=== PATIENT | female | born 1960 | race Caucasian/White ===

== ENCOUNTER 2016-12-11 13:23 | Emergency (ER) | payer OTHER ==
[~2016-12-11] VITALS: Ht 162.6 cm; Wt 115.7 kg
[2016-12-11] MEDS ORDERED: PREG100C PO (13:42)
[2016-12-11] MEDS ORDERED: BUPR300T43 PO (13:42)
[2016-12-11] MEDS ORDERED: ASPI-999 PO (13:42)
[2016-12-11 14:12] LABS: BASOPHILS % (AUTO) 0 % (0-10); EOSINOPHILS # (AUTO) 0.1 10^3/uL (0.0-0.3); EOSINOPHILS % (AUTO) 1 % (0-10); LYMPHOCYTES # (AUTO) 1.7 X 10^3 (1.0-4.0); LYMPHOCYTES % (AUTO) 17 % (12-44); MEAN CORPUSCULAR HEMOGLOBIN 29 PG (25-34); MEAN CORPUSCULAR HGB CONC 33 G/DL (32-36); MEAN CORPUSCULAR VOLUME 89 FL (80-99); MEAN PLATELET VOLUME 11.5 FL (7.4-10.4); MONOCYTES # (AUTO) 0.8 X 10^3 (0.0-1.0); MONOCYTES % (AUTO) 8 % (0-12); NEUTROPHILS # (AUTO) 7.4 X 10^3 (1.8-7.8); NEUTROPHILS % (AUTO) 73 % (42-75); PLATELET COUNT 261 10^3/uL (130-400); RED BLOOD COUNT 4.87 10^6/uL (4.35-5.85); RED CELL DISTRIBUTION WIDTH 14.1 % (10.0-14.5)
[2016-12-11 14:16] LABS: INR 0.9 (0.8-1.4); PROTHROMBIN TIME PATIENT 12.2 SEC (12.2-14.7)
[2016-12-11 14:24] LABS: ALANINE AMINOTRANSFERASE 29 U/L (0-55); ALBUMIN 4.1 GM/DL (3.2-4.5); ANION GAP 10 MMOL/L (5-14); ASPARTATE AMINO TRANSFERASE 23 U/L (5-34); BILIRUBIN,TOTAL 0.4 MG/DL (0.1-1.0); BLOOD UREA NITROGEN 12 MG/DL (7-18); BUN/CREATININE RATIO 10; CALCIUM 9.8 MG/DL (8.5-10.1); CARBON DIOXIDE 28 MMOL/L (21-32); CHLORIDE 103 MMOL/L (98-107); CREATININE SERUM 1.15 MG/DL (0.60-1.30); GFR ESTIMATED 49; GLUCOSE 91 MG/DL (70-105); MAGNESIUM 2.2 MG/DL (1.8-2.4); POTASSIUM 3.8 MMOL/L (3.6-5.0); SODIUM 141 MMOL/L (135-145); TOTAL PROTEIN 7.5 GM/DL (6.4-8.2)
[2016-12-11 14:30] LABS: MYOGLOBIN SERUM 50.9 NG/ML (10.0-92.0)
[2016-12-11] MEDS ORDERED: NS 100 ML (IVPB) BAG IV ONE (14:30)
[2016-12-11] MEDS ORDERED: IOHEXOL 350 MG/ML 150 ML (OMNIPAQUE 350) VIAL IV ONE (14:30)
--- NOTE | 2016-12-11 15:10 | Diagnostic Imaging Report ---
PROCEDURE: CT angiography of the chest with contrast. TECHNIQUE: Multiple contiguous axial images were obtained through the chest after uneventful bolus administration of intravenous contrast. Reconstructed CTA MIP acquisitions were also performed. INDICATION: Upper left chest pain x1 day. Fullness in the lower esophagus when swallowing. History of previous left subclavian blood clot. CORRELATION STUDY: None FINDINGS: Pulmonary arteries unremarkable. The heart size upper limits of normal. Thoracic aorta normal in contour without intraluminal filling defect. Take off of the major branches of the aortic arch demonstrates a common origin of the brachycephalic trunk and left common carotid artery, normal variation. Azygos vein is noted to be somewhat distended. The left subclavian vein does appear to be slightly effaced by the of ribs and clavicle. At this area, there is slight asymmetry at the density within the vessel. This may simply represent mixing of the contrast with the blood. Given history, thrombus would be difficult to exclude. No pathologically enlarged mediastinal and/or hilar lymph nodes. The EG junction does demonstrate suggestion of slight wall thickening. No abnormal distention of the esophagus. The lung farrar overall are generally clear. Minimal atelectasis is suggested about the lung bases. No significant pleural effusion. There is a small fat containing left posterior medial Bochdalek diaphragmatic hernia and a small amount of herniated fat. Visualized portion of the upper abdomen likely demonstrates hepatic steatosis. Osseous structures demonstrate cervical spinal fusion, otherwise unremarkable apart from degenerative changes of the thoracic spine. No findings to suggest superior rib resection for thoracic outlet symptoms. IMPRESSION: 1. No CT evidence for pulmonary embolism or acute findings of the thoracic aorta. 2. There is noted distention of the azygos vein of unknown etiology or significance. 3. Slight asymmetric compression about the left subclavian vessels. In this location, there is asymmetry within the venous contents. This may very well reflect mixing of contrast with blood. However, given history, thrombus would be difficult to exclude. 4. Questionable wall thickening of the low esophagus. In correlation with symptoms, consideration might be given to a non-emergent followup upper gastrointestinal imaging. Dictated by: Dictated on workstation # [id number]
--- NOTE | 2016-12-11 15:11 | Diagnostic Imaging Report ---
INDICATION: Left upper chest pain for one day. FINDINGS: A single view of the chest shows normal heart size and vascularity. The lungs are clear. There is no effusion or pneumothorax. There is no acute bony abnormality. IMPRESSION: Normal chest. Dictated by: Dictated on workstation # [id number]
--- NOTE | 2016-12-11 15:49 | ED Chest Pain ---
General Chief Complaint: Chest Pain Stated Complaint: CHEST PAIN,DIFFULTY SWALLOWING Nursing Triage Note: PT STATES LT UPPER CHEST PAIN AND PRESSURE, HARD TO SWALLOW THAT STARTED YESTERDAY WORSE TODAY, HX OF JUGULAR SUBCLAVIAN AXIAL CLOT IN 2000. "FEELS LIKE THERE'S SOMETHING THERE." Nursing Sepsis Screen: No Definite Risk Source: patient Exam Limitations: no limitations History of Present Illness Time seen by provider: 13:44 Initial Comments This 56 from woman presents to the emergency room with complaints of pressure sensation in the chest, particularly with swallowing. Swallowing is not difficult and she believes food and fluids are passing through to the stomach, but swallowing is very uncomfortable. She has the sensation of a "ball" causing pressure in the chest with swallowing. Patient denies any suspicion of food bolus or foreign body obstruction. She also has a history of thoracic outlet syndrome and has swelling in the left supraclavicular region. This is chronic and exacerbated. Symptoms with swallowing and pressure in the chest have been present since yesterday. Her primary care provider is Kirk Ulrich in [place]. She has not seen a cardiothoracic surgeon for her thoracic outlet syndrome. She does have a history of jugular, subclavian, and axillary thrombosis for which she was temporarily treated with anticoagulants. She reports having symptoms of GERD a couple months ago that consisted of pressure in the chest with lying flat. Allergies and Home Medications Allergies Coded Allergies: No Known Drug Allergies (Unverified , 12/11/16) Home Medications Aspirin 81 Mg Tab.chew, 81 MG PO DAILY, (Reported) Bupropion HCl 300 Mg Tab.er.24h, 300 MG PO DAILY, (Reported) Omeprazole 20 Mg Tablet.dr, 20 MG PO BID, #30 Prescribed by: SUZAN COBB on 12/11/161823 Pregabalin 100 Mg Capsule, 100 MG PO TID, (Reported) Sucralfate 1 Gm/10 Ml Oral.susp, 1 GM PO QID, #1200 Prescribed by: SUZAN COBB on 12/11/161823 Review of Systems Constitutional: no symptoms reported EENTM: No Symptoms Reported Respiratory: No Symptoms Reported Cardiovascular: See HPI Gastrointestinal: See HPI Genitourinary: No Symptoms Reported Musculoskeletal: no symptoms reported Skin: no symptoms reported Psychiatric/Neurological: No Symptoms Reported Endocrine: No Symptoms Reported Past Fhhvabw-Dbklio-Ephbif Hx Patient Social History Alcohol Use: Denies Use Recreational Drug Use: No Smoking Status: Former Smoker Type Used: Cigarettes Recent Foreign Travel: No Contact w/Someone Who Travel: No Recent Infectious Disease Expo: No Recent Hopitalizations: No Immunizations Up To Date Date of Influenza Vaccine: Mar 14, 2016 Seasonal Allergies Seasonal Allergies: Yes Surgeries HX Surgeries: Yes (cyst removed from sacrum) Surgeries: Abdominal (cystocele and rectocele), Hysterectomy Respiratory Hx Respiratory Disorders: No Cardiovascular Hx Cardiac Disorders: Yes (thoracic outlet syndrome, lymphedema) Cardiac Disorders: Deep Vein Thrombosis (left subclavian and jugular DVT) Neurological Hx Neurological Disorders: Yes (chronic left extremity weakness and pain) Reproductive System : No Genitourinary Hx Genitourinary Disorders: No Gastrointestinal Hx Gastrointestinal Disorders: Yes Musculoskeletal Hx Musculoskeletal Disorders: Yes Musculoskeletal Disorders: Degenerate Disk Disease Endocrine Hx Endocrine Disorders: No HEENT HX ENT Disorders: No Cancer Hx Cancer: No Psychosocial Hx Psychiatric Problems: No Integumentary HX Skin/Integumentary Disorder: No Physical Exam Vital Signs Vital Sign - Last 12Hours 12/11/16 13:32 Temp 99.2 Pulse 82 Resp 20 B/P (MAP) 147/82 Pulse Ox 98 O2 Delivery Room Air Capillary Refill : Less Than 3 Seconds General Appearance: WD/WN, Mild Distress (appears uncomfortable) HEENT: PERRL/EOMI, Normal ENT Inspection Neck: Supple, Other (fullness of the left neck and supraclavicular region) Respiratory: Lungs Clear, Normal Breath Sounds, No Accessory Muscle Use, No Respiratory Distress Cardiovascular: Regular Rate, Rhythm, No Edema, No Murmur Gastrointestinal: Normal Bowel Sounds, No Organomegaly, Non Tender, Soft, No Distended Extremity: Pedal Edema, Swelling, Other (chronic pitting lower extremity edema equal bilaterally with mild tenderness) Neurologic/Psychiatric: Alert, Oriented x3, No Motor/Sensory Deficits, Normal Mood/Affect, programmer II-XII Norm as Tested Skin: Normal Color, Warm/Dry Progress/Results/Core Measures Results/Orders Lab Results Laboratory Tests Test 12/11/16 13:45 Range/Units White Blood Count 10.0 4.3-11.0 10^3/uL Red Blood Count 4.87 4.35-5.85 10^6/uL Hemoglobin 14.1 11.5-16.0 G/DL Hematocrit 43 35-52 % Mean Corpuscular Volume 89 80-99 FL Mean Corpuscular Hemoglobin 29 25-34 PG Mean Corpuscular Hemoglobin Concent 33 32-36 G/DL Red Cell Distribution Width 14.1 10.0-14.5 % Platelet Count 261 130-400 10^3/uL Mean Platelet Volume 11.5 H 7.4-10.4 FL Neutrophils (%) (Auto) 73 42-75 % Lymphocytes (%) (Auto) 17 12-44 % Monocytes (%) (Auto) 8 0-12 % Eosinophils (%) (Auto) 1 0-10 % Basophils (%) (Auto) 0 0-10 % Neutrophils # (Auto) 7.4 1.8-7.8 X 10^3 Lymphocytes # (Auto) 1.7 1.0-4.0 X 10^3 Monocytes # (Auto) 0.8 0.0-1.0 X 10^3 Eosinophils # (Auto) 0.1 0.0-0.3 10^3/uL Basophils # (Auto) 0.0 0.0-0.1 10^3/uL Prothrombin Time 12.2 12.2-14.7 SEC INR Comment 0.9 0.8-1.4 Activated Partial Thromboplast Time 25 24-35 SEC Sodium Level 141 135-145 MMOL/L Potassium Level 3.8 3.6-5.0 MMOL/L Chloride Level 103 98-107 MMOL/L Carbon Dioxide Level 28 21-32 MMOL/L Anion Gap 10 5-14 MMOL/L Blood Urea Nitrogen 12 7-18 MG/DL Creatinine 1.15 0.60-1.30 MG/DL Estimat Glomerular Filtration Rate 49 BUN/Creatinine Ratio 10 Glucose Level 91 70-105 MG/DL Calcium Level 9.8 8.5-10.1 MG/DL Magnesium Level 2.2 1.8-2.4 MG/DL Total Bilirubin 0.4 0.1-1.0 MG/DL Aspartate Amino Transf (AST/SGOT) 23 5-34 U/L Alanine Aminotransferase (ALT/SGPT) 29 0-55 U/L Alkaline Phosphatase 86 40-136 U/L Myoglobin 50.9 10.0-92.0 NG/ML Troponin I < 0.30 <0.30 NG/ML Total Protein 7.5 6.4-8.2 GM/DL Albumin 4.1 3.2-4.5 GM/DL My Orders Orders - SUZAN DELEON MD Cbc With Automated Diff (12/11/16 14:07) Magnesium (12/11/16 14:07) Chest 1 View, Ap/Pa Only (12/11/16 14:07) Ekg Tracing (12/11/16 14:07) Cardiac Profile 1 (12/11/16 14:07) Comprehensive Metabolic Panel (12/11/16 14:07) Myoglobin Serum (12/11/16 14:07) Protime With Inr (12/11/16 14:07) Partial Thromboplastin Time (12/11/16 14:07) O2 (12/11/16 14:07) Monitor-Rhythm Ecg Trace Only (12/11/16 14:07) Saline Lock/Iv-Start (12/11/16 14:07) Ct Angio Chest W (12/11/16 14:10) Iohexol Injection (Omnipaque 350 Mg/Ml 1 (12/11/16 14:30) Ns (Ivpb) (Sodium Chloride 0.9% Ivpb Bag (12/11/16 14:30) Us Venous Upper Ext Lt (12/11/16 15:52) Us Left Up Ext Arterial 66108 (12/11/16 15:52) Lidocaine 2% Viscous 15 Ml (Xylocaine Vi (12/11/16 16:00) Antacid Suspension (Mylanta Suspension (12/11/16 16:00) Famotidine Injection (Pepcid Injection) (12/11/16 16:15) Pantoprazole Tablet (Protonix Tablet) (12/11/16 18:15) Iv Push Analyst [employer] Ed (12/11/16 ) Medications Given in ED Vital Signs/I&O Vital Sign - Last 12Hours 12/11/16 12/11/16 12/11/16 13:32 13:40 18:31 Temp 99.2 99.2 Pulse 82 89 Resp 20 20 B/P (MAP) 147/82 Pulse Ox 98 98 O2 Delivery Room Air Room Air Room Air Blood Pressure Mean: 103 Progress Note : Progress Note After discussion with the radiologist, imaging was obtained with CT angiogram of the chest with additional delayed views to further evaluate venous system. Pulmonary embolus was ruled out. Evaluation of the left subclavian vein was inconclusive due to slower flow and probable blood mixing artifact. I discussed with the radiologist. Follow-up ultrasound imaging was recommended. Ultrasounds were unremarkable. Patient was given a GI cocktail and Pepcid which did not improve her symptoms. Case was reviewed with Dr. Mcdermott. He recommended further treatment for possible esophagitis given the thickening of the distal esophagus on CT imaging. Patient was prescribed omeprazole and Carafate. Dietary restrictions were provided with the discharge instructions. Patient was given a dose of Protonix before departure. Patient was advised to follow-up with Dr. Mcdermott as soon as possible for endoscopy. Referral to a cardiothoracic surgeon was also recommended if an etiology for her symptoms was not determined on endoscopy. ECG Initial ECG Impression Date: Dec 11, 2016 Initial ECG Impression Time: 13:33 Initial ECG Rate: 90 Initial ECG Rhythm: Normal Sinus Comment Normal sinus rhythm with no ST elevation or depression. No abnormal intervals. Borderline left axis deviation. Diagnostic Imaging Diagonstic Imaging: CT Plain Films/CT/US/NM/MRI: chest Comments CT angiogram of the chest viewed by me and report reviewed. Discussed with radiologist. See report below: NAME: ELVI VERA [facility] REC#: [id number] PT STATUS: DEP ER : 1960 PHYSICIAN: SUZAN DELEON MD ADMIT DATE: 12/11/16/ER Signed Date of Exam: 12/11/16 CT ANGIO CHEST W PROCEDURE: CT angiography of the chest with contrast. TECHNIQUE: Multiple contiguous axial images were obtained through the chest after uneventful bolus administration of intravenous contrast. Reconstructed CTA MIP acquisitions were also performed. INDICATION: Upper left chest pain x1 day. Fullness in the lower esophagus when swallowing. History of previous left subclavian blood clot. CORRELATION STUDY: None FINDINGS: Pulmonary arteries unremarkable. The heart size upper limits of normal. Thoracic aorta normal in contour without intraluminal filling defect. Take off of the major branches of the aortic arch demonstrates a common origin of the brachycephalic trunk and left common carotid artery, normal variation. Azygos vein is noted to be somewhat distended. The left subclavian vein does appear to be slightly effaced by the of ribs and clavicle. At this area, there is slight asymmetry at the density within the vessel. This may simply represent mixing of the contrast with the blood. Given history, thrombus would be difficult to exclude. No pathologically enlarged mediastinal and/or hilar lymph nodes. The EG junction does demonstrate suggestion of slight wall thickening. No abnormal distention of the esophagus. The lung farrar overall are generally clear. Minimal atelectasis is suggested about the lung bases. No significant pleural effusion. There is a small fat containing left posterior medial Bochdalek diaphragmatic hernia and a small amount of herniated fat. Visualized portion of the upper abdomen likely demonstrates hepatic steatosis. Osseous structures demonstrate cervical spinal fusion, otherwise unremarkable apart from degenerative changes of the thoracic spine. No findings to suggest superior rib resection for thoracic outlet symptoms. IMPRESSION: 1. No CT evidence for pulmonary embolism or acute findings of the thoracic aorta. 2. There is noted distention of the azygos vein of unknown etiology or significance. 3. Slight asymmetric compression about the left subclavian vessels. In this location, there is asymmetry within the venous contents. This may very well reflect mixing of contrast with blood. However, given history, thrombus would be difficult to exclude. 4. Questionable wall thickening of the low esophagus. In correlation with symptoms, consideration might be given to a non-emergent followup upper gastrointestinal imaging. Dictated by: Dictated on workstation # [id number] Dict: 12/11/16 1458 Trans: 12/12/16 0759 Interpreted by: LACY FITZPATRICK DO Electronically signed by: LACY FITZPATRICK DO 12/12/16 0759 Diagonstic Imaging: Xray Plain Films/CT/US/NM/MRI: chest Comments NAME: ELVI VERA [facility] REC#: [id number] PT STATUS: REG ER : 1960 PHYSICIAN: SUZAN DELEON MD ADMIT DATE: 12/11/16/ER Signed Date of Exam: 12/11/16 CHEST 1 VIEW, AP/PA ONLY INDICATION: Left upper chest pain for one day. FINDINGS: A single view of the chest shows normal heart size and vascularity. The lungs are clear. There is no effusion or pneumothorax. There is no acute bony abnormality. IMPRESSION: Normal chest. Dictated by: Dictated on workstation # [id number] Dict: 12/11/16 1504 Trans: 12/11/16 1511 Interpreted by: MARKELL VIVAS MD Electronically signed by: MARKELL VIVAS MD 12/11/16 151 Diagonstic Imaging: Ultrasound Plain Films/CT/US/NM/MRI: other (Left upper extremity) Comments NAME: ELVI VERA [facility] REC#: [id number] PT STATUS: [facility] ER : 1960 PHYSICIAN: SUZAN DELEON MD ADMIT DATE: 12/11/16/ER Signed Date of Exam: 12/11/16 US VENOUS UPPER EXT LT Left upper extremity venous ultrasound. INDICATION: Left upper extremity swelling and pain. Spectral and color flow imaging of deep venous system was performed. There are no prior studies available for comparison. FINDINGS: There is generally good blood flow and compressibility at all levels. There is no evidence for deep venous thrombosis. IMPRESSION: There is no evidence for deep venous thrombosis of the left upper extremity. Dictated by: Dictated on workstation # [id number] Dict: 12/11/161730 Trans: 12/12/168 Interpreted by: DANYELL GARCIA MD Electronically signed by: DANYELL GARCIA MD 12/12/16 0028 NAME: ELVI VERA [facility] REC#: [id number] PT STATUS: [facility] ER : 1960 PHYSICIAN: SUZAN DELEON MD ADMIT DATE: 12/11/16/ER Signed Date of Exam: 12/11/16 US LEFT UP EXT ARTERIAL [id number] Left upper extremity arterial Doppler. INDICATION: Arm pain. Spectral and color flow imaging of the arterial system left upper extremity was performed. There is generally good arterial blood flow from the subclavian artery to the radial and ulnar arteries. There is no abrupt alteration of velocities to suggest a hemodynamically significant stenosis and triphasic waveforms are seen at all levels. IMPRESSION: There is no evidence for a hemodynamically significant stenosis of the arterial system of the left upper extremity. Dictated by: Dictated on workstation # [id number] Dict: 12/11/161734 Trans: 12/12/1626 Interpreted by: DANYELL GARCIA MD Electronically signed by: DANYELL GARCIA MD 12/12/167 Departure Impression Impression: Primary Impression: Odynophagia Additional Impressions: Thoracic outlet syndrome Atypical chest pain Disposition: 01 HOME, SELF-CARE Condition: Stable Departure-Patient Inst. Decision time for Depature: 18:10 Referrals: JALYN MCDERMOTT,LOCAL PHYSICIAN (PCP) Primary Care Physician Patient Instructions: Chest Pain That Is Not Caused by the Heart (DC) Add. Discharge Instructions: Take omeprazole twice daily and Carafate 30 minutes before meals and bedtime as prescribed. Follow-up with Dr. Mcdermott (or the surgeon of your choice) as soon as possible. Return to care if symptoms worsen. Drink plenty of clear liquids. Chew your food well before swallowing and take small bites. Avoid the following: Eating close to bedtime, eating large meals, carbonation, caffeine, chocolate, spicy foods, mint, tobacco products, alcohol, fatty or greasy foods, NSAID medications such as ibuprofen or naproxen, citrus fruits or juices, tomato products, or anything else you know irritates your stomach. All discharge instructions reviewed with patient and/or family. Voiced understanding. Scripts Omeprazole (Omeprazole) 20 Mg Tablet. 20 MG PO BID, #30 TAB Prov: SUZAN DELEON MD 12/11/16 Sucralfate (Carafate) 1 Gm/10 Ml Oral.susp 1 GM PO QID, #1200 ML Prov: SUZAN DELEON MD 12/11/16 Copy Copies To 1: JALYN MCDERMOTT JOSHUA T MD Dec 11, 2016 15:49
[2016-12-11] MEDS ORDERED: ANTACID SUSP 30 ML UDC (MYLANTA) PO ONE (16:00)
[2016-12-11] MEDS ORDERED: LIDOCAINE 2% VISCOUS 15 ML UDC PO ONE (16:00)
[2016-12-11] MEDS ORDERED: FAMOTIDINE 20MG/2ML IV (PEPCID) IVP ONE (16:15)
--- NOTE | 2016-12-11 17:43 | Diagnostic Imaging Report ---
Left upper extremity venous ultrasound. INDICATION: Left upper extremity swelling and pain. Spectral and color flow imaging of deep venous system was performed. There are no prior studies available for comparison. FINDINGS: There is generally good blood flow and compressibility at all levels. There is no evidence for deep venous thrombosis. IMPRESSION: There is no evidence for deep venous thrombosis of the left upper extremity. Dictated by: Dictated on workstation # [id number]
--- NOTE | 2016-12-11 17:53 | Diagnostic Imaging Report ---
Left upper extremity arterial Doppler. INDICATION: Arm pain. Spectral and color flow imaging of the arterial system left upper extremity was performed. There is generally good arterial blood flow from the subclavian artery to the radial and ulnar arteries. There is no abrupt alteration of velocities to suggest a hemodynamically significant stenosis and triphasic waveforms are seen at all levels. IMPRESSION: There is no evidence for a hemodynamically significant stenosis of the arterial system of the left upper extremity. Dictated by: Dictated on workstation # [id number]
[2016-12-11] MEDS ORDERED: PANTOPRAZOLE 40 MG (PROTONIX) TAB PO ONE (18:15)
[2016-12-11] MEDS ORDERED: OMEP20TA7 PO (18:24)
[2016-12-11] MEDS ORDERED: SUCR1ORA5 PO (18:24)
[2016-12-11 18:31] VITALS: BP 123/97
--- OUTSIDE RECORDS SUMMARY | 2016-12-12 16:10 | XMS REPORT | CCD ---
Author Author BOB HENDRICKSON Organization Unknown Address [address] [place], [place] [id number] Care Team Providers Care Counterperson Name Role Phone [facility], LIZ DERAS Attphys [facility], ABDIAS TOMLIN Prisurg Vital Signs Unknown or Not Available. Allergies Allergy Code Allergy Type Reaction Status MORPHINE 7052 Drug allergy Active Procedures Procedure Code Procedure Type Date LOCM 300-349 MG/ML, PER ML 506804327 OMED CT 01/21/2015 CT CHEST W/CONTRAST 30835166 SNOMED CT 01/21/2015 CT NECK SOFT TISSUE W/CONTRAST 189240782 SNOMED CT 2014 ^CBC W/AUTO DIFF 9174689 SNOMED CT 01/21/2015 C REACTIVE PROTEIN 73071405 OMED CT 01/21/2015 D DIMER QUANT 367512549 SNOMED CT 01/21/2015 CBC W/ AUTO DIFF (RFLX MAN DIFF IF IND) 9850116 [facility] CT 01/21/2015 COMPREHENSIVE METABOLIC PANEL [id number] [facility] CT 2014 History of Immunizations Unknown or Not Available. Problems Unknown or Not Available. Results COMPREHENSIVE METABOLIC PANEL - Collect Date/Time: 01/21/2015 18:50 Test Name Code Test Result Test Units Test Ref Range GLUCOSE 2345-7 95 MG/DL L=70 H=100 SODIUM 2951-2 142 MEQ/L L=135 H=148 POTASSIUM 2823-3 4.0 MEQ/L L=3.5 H=5.3 CHLORIDE 2075-0 105 MEQ/L L=96 H=110 CO2 2028-9 26 MEQ/L L=22 H=29 BUN 3094-0 11 MG/DL L=8 H=22 CREATININE 2160-0 0.8 MG/DL L=0.6 H=1.6 SGOT/AST 1920-8 21 IU/L L=10 H=40 SGPT/ALT 1742-6 28 IU/L L=8 H=54 ALK PHOS 6768-6 72 IU/L L=35 H=115 TOTAL PROTEIN 2885-2 7.0 G/DL L=5.5 H=8.5 ALBUMIN 1751-7 4.2 G/DL L=3.1 H=5.4 TOTAL BILI 1975-2 0.3 MG/DL L=0.0 H=1.5 CALCIUM 35923-8 9.7 MG/DL L=8.2 H=10.6 AGE 54 yrs GFR NonAA 75 GFR AA 91 eGFR >60 N/A eGFR AA* >60 N/A CBC W/ AUTO DIFF (RFLX MAN DIFF IF IND) - Collect Date/Time: 01/21/2015 18:50 Test Name Code Test Result Test Units Test Ref Range WBC 51707-4 6.7 TH/CMM L=4.5 H=10.8 RBC 789-8 4.99 ML/CMM L=4.20 H=5.40 HGB 718-7 14.1 G/DL L=12.0 H=16.0 HCT 4544-3 44.6 % L=37.0 H=47.0 MCV 89 FL L=81 H=99 MCH 28.3 PG L=27.0 H=33.0 MCHC 31.6 G/DL L=31.0 H=36.0 RDW SD 46 FL L=36 H=50 RDW CV 14.1 % L=0.0 H=14.8 MPV 11.5 FL L=9.3 H=12.5 PLT 777-3 222 TH/CMM L=130 H=440 NRBC# 0.00 TH/CMM L=0.00 H=0.00 NRBC% 0.0 /100WBC L=0.0 H=2.0 %NEUT 57.7 % %LYMP 34.4 % %MONO 6.1 % %EOS 1.2 % %BASO 0.6 % #NEUT 3.86 TH/CMM L=2.10 H=8.20 #LYMP 2.30 TH/CMM L=0.90 H=5.20 #MONO 0.41 TH/CMM L=0.16 H=1.00 #EOS 0.08 TH/CMM L=0.00 H=0.80 #BASO 0.04 TH/CMM L=0.00 H=0.20 MANUAL DIFF NOT IND N/A D DIMER QUANT - Collect Date/Time: 01/21/2015 18:50 Test Name Code Test Result Test Units Test Ref Range D-DIMER QUANT 87646-1 0.32 MG/L FEU L=0.00 H= 0.50 C REACTIVE PROTEIN - Collect Date/Time: 01/21/2015 18:50 Test Name Code Test Result Test Units Test Ref Range C REACTIVE PROTEIN 1988-5 <0.5 MG/DL L=0.0 H= 1.0 Active Medications Unknown or Not Available. Medications Administered During Visit Unknown or Not Available. Encounters Encounter Diagnosis Diagnosis Code Start Date SWELLING IN HEAD & NECK 7842 01/21/2015 Social History Smoking Status Code Start Date End Date Never smoker [id number] Patient Decision Aids Unknown or Not Available. Discharge Instructions You were admitted to [facility] on 01/21/2015 with a principal diagnosis of SWELLING IN HEAD & NECK. You were discharged from [facility] on 01/21/2015. Should you have any questions prior to discharge, please contact a member of your healthcare team. If you have left the hospital and have any questions, please contact your primary care physician. Chief Complaint and Reason For Visit Chief Complaint Date of Onset SWELLING OF LEFT SIDE PAIN IN LEFT ARM AND NECK Function Status Unknown or Not Available. Referral/Transition of Care Unknown or Not Available.
== END 2016-12-11 18:31 | disposition home or self-care (01) ==
LOC: EDUNIT# 13:23 → ER 13:27
DX: R07.89 Other chest pain (principal); R13.10 Dysphagia, unspecified; G54.0 Brachial plexus disorders; M51.36 Other intervertebral disc degeneration, lumbar region; Z90.710 Acquired absence of both cervix and uterus; Z86.718 Personal history of other venous thrombosis and embolism; Z87.891 Personal history of nicotine dependence; Z79.82 Long term (current) use of aspirin
CPT/HCPCS: 36415; 71010; 71275; 80053; 83735; 83874; 84484; 85025; 85610; 85730; 93005; 93041; 93931; 96374